=== PATIENT | male | born 1960 | race Caucasian/White ===

== ENCOUNTER 2019-05-29 14:45 | Inpatient (IN) | payer MEDICARE ==
[~2019-05-29] VITALS: Ht 172.7 cm; Wt 86.6 kg
[2019-05-29 14:57] VITALS: BP 103/60
[2019-05-29 15:38] LABS: HEMATOCRIT 46.1 % (42.0-52.0); HEMOGLOBIN 14.6 g/dl (14.0-18.0); MEAN CELL VOLUME 84.6 fl (80.0-94.0); MEAN CORPUSCULAR HGB 26.8 pg (27.0-31.0); MEAN CORPUSCULAR HGB CONC 31.7 g/dl (33.0-37.0); MEAN PLATELET VOLUME 10.1 fl (9.6-12.3); PLATELET COUNT AUTOMATED 284 10*3/uL (130-400); RED BLOOD COUNT 5.45 10*6/uL (4.50-5.90); WHITE BLOOD COUNT 18.8 10*3/uL (4.8-10.8)
[2019-05-29] MEDS ORDERED: CLONIDINE0.3 MG PO ×2 (15:45→15:49)
[2019-05-29] MEDS ORDERED: METFORMIN850 MG PO (15:45)
[2019-05-29] MEDS ORDERED: GLIMEPIRIDE4 M1 PO (15:46)
[2019-05-29] MEDS ORDERED: METOPROLOL TAR100 M1 PO (15:46)
[2019-05-29] MEDS ORDERED: ENALAPRIL MALEA20 MG PO (15:46)
[2019-05-29] MEDS ORDERED: AMLODIPINE BESY10 MG PO (15:47)
[2019-05-29] MEDS ORDERED: FARXIGA10 M1 PO (15:47)
[2019-05-29] MEDS ORDERED: TRADJENTA5 M1 PO (15:47)
[2019-05-29] MEDS ORDERED: LOVASTATIN10 MG PO (15:48)
[2019-05-29 15:56] LABS: ALBUMIN 3.5 gm/dl (3.1-4.5); ALKALINE PHOSPHATASE 95 U/L (45-117); BUN 24 mg/dl (7-24); CHLORIDE 106 mmol/L (98-107); CREATININE 1.53 mg/dL (0.70-1.30); POTASSIUM 3.9 mmol/L (3.5-5.1); SGOT/AST 45 IU/L (3-35); SGPT/ALT 43 U/L (12-78); SODIUM 143 mmol/L (136-145); TOTAL PROTEIN 8.1 gm/dL (6.4-8.2)
[2019-05-29 16:00] LABS: TROPONIN I < 0.015 ng/ml (<0.045)
[2019-05-29 16:03] LABS: PLATELET SUFFICIENCY NORMAL (NORMAL); TOTAL CELLS COUNTED 100 #CELLS
[2019-05-29 16:04] LABS: BURR CELLS FEW
--- NOTE | 2019-05-29 16:43 | NUR ---
THE PATIENTS SISTER IN LAW GAVE APPROVAL FOR THIS NURSE TO [facility] THE PATIENT. I TOLD LUKASZ TERRY AND SHE GAVE A VERBAL ORDER TO [facility] THE PATIENT.
[2019-05-29 16:44] LABS: BILIRUBIN NEGATIVE (NEGATIVE); BLOOD 3+ (NEGATIVE); CLARITY CLOUDY (CLEAR); COLOR YELLOW (YELLOW); GLUCOSE 3+ (NEGATIVE); KETONE 2+ (NEGATIVE); LEUKO ESTERASE NEGATIVE (NEGATIVE); NITRITE NEGATIVE (NEGATIVE); UROBILINOGEN 0.2 E.U./dl (0.2-1.0)
[2019-05-29 16:50] LABS: BACTERIA 1+; MUCOUS 1+; RBC TNTC rbc/hpf (0-2)
[2019-05-29 17:00] LABS: URINE AMPHETAMINES < 1000 (1000ng/ml); URINE BARBITURATES < 200 (200ng/ml); URINE BENZODIAZEPINES < 200 (200ng/ml); URINE CANNABINOIDS (THC) < 50 (50ng/ml); URINE COCAINE < 300 (300ng/ml); URINE METHADONE < 300 (300ng/ml); URINE OPIATES < 300 (300ng/ml)
[2019-05-29 17:03] LABS: URINE PHENCYCLIDINE < 25 (25ng/ml)
[2019-05-29 17:23] VITALS: BP 136/77
--- NOTE | 2019-05-29 17:30 | NUR ---
A 58, admitted to 4E, under the services of MATTIE Velazquez DO with a diagnosis of UTI. Chief complaint is CHANGE IN MENTAL STATUS . Patient arrived via stretcher from ER. Monitor applied. Initial assessment completed. Vital signs taken and recorded. MATTIE VELAZQUEZ DO notified of admission to the unit. Orders received. See assessment for past medical history, medications and allergies. Patient and/or family oriented to unit. [facility] visitation policy reviewed. Clothing/patient valuable form completed. MAXIMO LAURA
--- NOTE | 2019-05-29 17:42 | NUR ---
THE PATIENTS SISTER IN LAW KAMARI SIGNED CONSENT FOR ADMISSION
[2019-05-29 20:00] VITALS: BP 141/79
[2019-05-30] VITALS: BP 124/83
--- NOTE | 2019-05-30 00:38 | NUR ---
24 HR chart check completed.
[2019-05-30 06:23] LABS: BASO % 0.4 % (0.0-1.0); EOS % 0.5 % (1.0-4.0); HEMATOCRIT 41.5 % (42.0-52.0); HEMOGLOBIN 13.1 g/dl (14.0-18.0); LYMPH # 0.9 10*3/uL (1.3-4.4); MEAN CORPUSCULAR HGB 26.5 pg (27.0-31.0); MEAN CORPUSCULAR HGB CONC 31.6 g/dl (33.0-37.0); MEAN PLATELET VOLUME 10.1 fl (9.6-12.3); MONO # 0.8 10*3/uL (0.1-1.0); MONO % 9.3 % (3.0-9.0); NEUT # 6.8 10*3/uL (2.3-7.9); NEUT % 79.3 % (47.0-73.0); PLATELET COUNT AUTOMATED 232 10*3/uL (130-400); RED BLOOD COUNT 4.94 10*6/uL (4.50-5.90); RED CELL DISTRI WIDTH 16.9 % (0-14.5); WHITE BLOOD COUNT 8.5 10*3/uL (4.8-10.8)
[2019-05-30 06:28] LABS: BUN 19 mg/dl (7-24); CHLORIDE 110 mmol/L (98-107); CREATININE 1.24 mg/dL (0.70-1.30); POTASSIUM 3.4 mmol/L (3.5-5.1); SODIUM 139 mmol/L (136-145)
[2019-05-30 06:32] LABS: CHOLESTEROL 102 mg/dL (<200); HDL CHOLESTEROL 34 mg/dl (40-60); LDL CHOLESTEROL 46 mg/dL (9-159); PHOSPHOROUS 2.1 mg/dL (2.5-4.9); TRIGLYCERIDES 108 mg/dl (<150); VLDL CHOLESTEROL 22 mg/dL (6-40)
--- NOTE | 2019-05-30 06:59 | NUR ---
PRN TYLENOL GIVEN FOR A HEADACHE. WILL REASSESS EFFECTIVENESS.
[2019-05-30 08:00] VITALS: BP 134/77
--- NOTE | 2019-05-30 08:32 | NUR ---
PATIENT IS REFUSING TO WEAR THE HEAR MONITOR AT THIS TIME. PATIENT HAS NO DISTRESS OR CONCERNS NOTED.
--- NOTE | 2019-05-30 09:34 | NUR ---
PATIENT STILL REFUSING TO WEAR HEART MONITOR. PATIENT IS IN NO DISTRESS AT THIS TIME. 1 ON 1 STILL IN ROOM
[2019-05-30 12:00] VITALS: BP 115/74
[2019-05-30 16:00] VITALS: BP 142/75
[2019-05-30 20:00] VITALS: BP 122/72
[2019-05-31] VITALS: BP 114/80
--- NOTE | 2019-05-31 01:49 | NUR ---
CALLED AND NOTIFIED HIM THAT PT IS HAVING A LOT OF PAIN AND TYLENOL IS NOT HELPING. RECEIVED AN ORDER FOR A 1X DOSE OF NORCO. PER I CAN GIVE THIS MEDICATION 1 HR AFTER PT RECEIVED THE TYLENOL.
--- NOTE | 2019-05-31 02:33 | NUR ---
24 HR chart check completed.
[2019-05-31 06:37] LABS: BUN 12 mg/dl (7-24); CHLORIDE 107 mmol/L (98-107); CREATININE 0.99 mg/dL (0.70-1.30); POTASSIUM 3.4 mmol/L (3.5-5.1); SODIUM 140 mmol/L (136-145)
[2019-05-31 06:42] LABS: BASO % 1.2 % (0.0-1.0); EOS # 0.1 10*3/uL (0.0-0.4); EOS % 2.3 % (1.0-4.0); HEMATOCRIT 45.1 % (42.0-52.0); HEMOGLOBIN 14.4 g/dl (14.0-18.0); LYMPH # 0.9 10*3/uL (1.3-4.4); LYMPH % 25.1 % (27.0-41.0); MEAN CELL VOLUME 83.2 fl (80.0-94.0); MEAN CORPUSCULAR HGB 26.6 pg (27.0-31.0); MEAN CORPUSCULAR HGB CONC 31.9 g/dl (33.0-37.0); MEAN PLATELET VOLUME 10.5 fl (9.6-12.3); MONO # 0.6 10*3/uL (0.1-1.0); MONO % 17.6 % (3.0-9.0); NEUT # 1.8 10*3/uL (2.3-7.9); NEUT % 52.9 % (47.0-73.0); PLATELET COUNT AUTOMATED 251 10*3/uL (130-400); RED BLOOD COUNT 5.42 10*6/uL (4.50-5.90); RED CELL DISTRI WIDTH 16.7 % (0-14.5); WHITE BLOOD COUNT 3.5 10*3/uL (4.8-10.8)
[2019-05-31 08:00] VITALS: BP 97/80
--- NOTE | 2019-05-31 09:03 | NUR ---
Mat Machine Operator in to talk to patient. Patient states lives at home with brother and sister in law. There are no steps in the home. Physician: [facility]acy: [facility] Home health services: none Patient's level of ADLs: INDEPENDENT Patient has working utilities: all working DME: none Follow-up physician's appointment after d/c: will be made by hospitalist nurse director upon discharge Does patient want to access PORTAL?: no Discharge plan discussed with patient's brother and sister in law, brother Peter states patient lives with him and his , he is independent in ambulation and needs minimal assistance with adls, he attends the [employer], brother stated patient would return home with him and at this time denies any home needs, case management will follow. KRISTIN BERGERON
[2019-05-31 12:00] VITALS: BP 145/96
--- NOTE | 2019-05-31 12:18 | NUR ---
Patient is sexually inappropriate with self and attempted to urinate on staff. Per staff patient would not follow directions and stop behaviour.
--- NOTE | 2019-05-31 13:03 | NUR ---
As reported from another patient assistannt, she does not think he is being sexually inappropriate. She beleives it's painful during urination.
--- NOTE | 2019-05-31 14:18 | NUR ---
MEDICATED WITH TYLENOL FOR PENILE/SCROTUM PAIN. WILL MONITOR. CALL LIGHT WITHIN REACH. 1:1 MAINTAINED.
[2019-05-31 16:00] VITALS: BP 121/67
--- NOTE | 2019-05-31 17:15 | NUR ---
NOTIFIED OF LARGE PIECE OR FOAM REMOVED FROM PATIENTS RIGHT EAR WITHOUT DIFFICULTY
[2019-05-31 20:00] VITALS: BP 134/91
[2019-06-01] VITALS: BP 128/98
[2019-06-01 06:19] LABS: HEMATOCRIT 44.1 % (42.0-52.0); HEMOGLOBIN 14.2 g/dl (14.0-18.0); MEAN CELL VOLUME 80.9 fl (80.0-94.0); MEAN CORPUSCULAR HGB 26.1 pg (27.0-31.0); MEAN CORPUSCULAR HGB CONC 32.2 g/dl (33.0-37.0); MEAN PLATELET VOLUME 9.6 fl (9.6-12.3); PLATELET COUNT AUTOMATED 257 10*3/uL (130-400); RED BLOOD COUNT 5.45 10*6/uL (4.50-5.90); RED CELL DISTRI WIDTH 16.1 % (0-14.5); WHITE BLOOD COUNT 4.8 10*3/uL (4.8-10.8)
[2019-06-01 06:33] LABS: BUN 13 mg/dl (7-24); CHLORIDE 107 mmol/L (98-107); CREATININE 0.81 mg/dL (0.70-1.30); POTASSIUM 3.6 mmol/L (3.5-5.1); SODIUM 139 mmol/L (136-145)
[2019-06-01 07:26] LABS: BASOPHILS 1 % (0-1); PLATELET SUFFICIENCY NORMAL (NORMAL); TOTAL CELLS COUNTED 100 #CELLS
[2019-06-01 08:00] VITALS: BP 129/100
[2019-06-01] MEDS ORDERED: CIPRO500 MG PO (11:46)
--- NOTE | 2019-06-01 12:40 | NUR ---
Discharge instructions reviewed with patient/family. Patient receptive and verbalizes understanding. Follow-up care arranged. Written instructions given to patient/family. RAVINDER CASTANEDA
--- NOTE | 2019-06-01 12:43 | NUR ---
PT DISCHARGED AT THIS TIME WITH SISTER IN LAW KAMARI TO HOME.
== END 2019-06-01 12:43 | disposition home or self-care (01) | DRG 871 ==
LOC: ED 14:45 → EDHOLD 17:02 → 4E 17:02
PROVIDERS: Internal Medicine; Physician Assistant; Student in an Organized Health Care Education/Training Program; ADMIT Emergency Medicine
DX: A41.9 Sepsis, unspecified organism (principal); N17.0 Acute kidney failure with tubular necrosis; N30.01 Acute cystitis with hematuria; E87.2 Acidosis; R65.20 Severe sepsis without septic shock; D64.9 Anemia, unspecified; E83.39 Other disorders of phosphorus metabolism; E11.65 Type 2 diabetes mellitus with hyperglycemia; E87.8 Other disorders of electrolyte and fluid balance, not elsewhere classified; E87.6 Hypokalemia; I10 Essential (primary) hypertension; R62.50 Unspecified lack of expected normal physiological development in childhood; Z91.040 Latex allergy status; Z79.899 Other long term (current) drug therapy

== ENCOUNTER 2021-04-25 12:58 | Inpatient (IN) | payer MEDICARE ==
[~2021-04-25] VITALS: Ht 172.7 cm; Wt 105.4 kg
[~2021-04-25 12:58] MED LIST: AMLODIPINE BESY10 MG PO; CIPRO500 MG PO; CLONIDINE0.3 MG PO; ENALAPRIL MALEA20 MG PO; FARXIGA10 M1 PO; GLIMEPIRIDE4 M1 PO; LOVASTATIN10 MG PO; METFORMIN850 MG PO; METOPROLOL TAR100 M1 PO; TRADJENTA5 M1 PO
[2021-04-25 13:20] VITALS: BP 95/42
[2021-04-25 14:17] LABS: BASO % 0.2 % (0.0-1.0); EOS % 0.4 % (1.0-4.0); HEMATOCRIT 41.8 % (42.0-52.0); LYMPH # 0.8 10*3/uL (1.3-4.4); LYMPH % 13.3 % (27.0-41.0); MEAN CELL VOLUME 82.4 fl (80.0-94.0); MEAN CORPUSCULAR HGB 26.4 pg (27.0-31.0); MEAN CORPUSCULAR HGB CONC 32.1 g/dl (33.0-37.0); MONO # 0.4 10*3/uL (0.1-1.0); MONO % 7.1 % (3.0-9.0); NEUT # 4.4 10*3/uL (2.3-7.9); NEUT % 78.3 % (47.0-73.0); PLATELET COUNT AUTOMATED 258 10*3/uL (130-400); RED BLOOD COUNT 5.07 10*6/uL (4.50-5.90); RED CELL DISTRI WIDTH 14.6 % (0-14.5); WHITE BLOOD COUNT 5.7 10*3/uL (4.8-10.8)
[2021-04-25 14:33] LABS: ALBUMIN 2.8 gm/dl (3.1-4.5); ALKALINE PHOSPHATASE 81 U/L (45-117); BUN 22 mg/dl (7-24); CHLORIDE 112 mmol/L (98-107); CREATININE 1.16 mg/dL (0.70-1.30); LIPASE 161 U/L (73-393); POTASSIUM 3.4 mmol/L (3.5-5.1); SGOT/AST 51 IU/L (3-35); SGPT/ALT 52 U/L (12-78); SODIUM 143 mmol/L (136-145); TOTAL PROTEIN 7.8 gm/dL (6.4-8.2)
[2021-04-25 17:35] VITALS: BP 137/66
[2021-04-25 17:50] VITALS: BP 147/60
[2021-04-25 20:00] VITALS: BP 140/84
[2021-04-26] VITALS: BP 147/67
[2021-04-26 05:40] LABS: ALBUMIN 2.6 gm/dl (3.1-4.5); ALKALINE PHOSPHATASE 72 U/L (45-117); BUN 17 mg/dl (7-24); CHLORIDE 115 mmol/L (98-107); CHOLESTEROL 94 mg/dL (<200); CREATININE 0.97 mg/dL (0.70-1.30); LDL CHOLESTEROL 36 mg/dL (9-159); POTASSIUM 3.3 mmol/L (3.5-5.1); SGOT/AST 55 IU/L (3-35); SGPT/ALT 51 U/L (12-78); SODIUM 144 mmol/L (136-145); TRIGLYCERIDES 110 mg/dl (<150)
[2021-04-26 05:46] LABS: FREE T4 1.73 ng/dl (0.76-1.46)
[2021-04-26 06:19] LABS: BASO % 0.5 % (0.0-1.0); EOS % 0.7 % (1.0-4.0); HEMATOCRIT 40.4 % (42.0-52.0); LYMPH # 0.9 10*3/uL (1.3-4.4); LYMPH % 21.3 % (27.0-41.0); MEAN CELL VOLUME 83.8 fl (80.0-94.0); MEAN CORPUSCULAR HGB 26.6 pg (27.0-31.0); MEAN CORPUSCULAR HGB CONC 31.7 g/dl (33.0-37.0); MEAN PLATELET VOLUME 9.7 fl (9.6-12.3); MONO # 0.4 10*3/uL (0.1-1.0); MONO % 9.7 % (3.0-9.0); NEUT # 2.9 10*3/uL (2.3-7.9); NEUT % 67.3 % (47.0-73.0); PLATELET COUNT AUTOMATED 256 10*3/uL (130-400); RED BLOOD COUNT 4.82 10*6/uL (4.50-5.90); RED CELL DISTRI WIDTH 14.5 % (0-14.5); WHITE BLOOD COUNT 4.3 10*3/uL (4.8-10.8)
[2021-04-26 08:00] VITALS: BP 136/74
[2021-04-26 08:37] LABS: FERRITIN 242.1 ng/mL (22.0-322.0)
[2021-04-26 12:00] VITALS: BP 120/58
[2021-04-26 16:00] VITALS: BP 107/77
[2021-04-26 20:00] VITALS: BP 118/80
[2021-04-27] VITALS: BP 147/88
[2021-04-27 06:10] LABS: LYMPH # 0.8 10*3/uL (1.3-4.4); LYMPH % 17.9 % (27.0-41.0); MEAN CELL VOLUME 82.2 fl (80.0-94.0); MEAN CORPUSCULAR HGB CONC 31.7 g/dl (33.0-37.0); MEAN PLATELET VOLUME 10.2 fl (9.6-12.3); MONO # 0.5 10*3/uL (0.1-1.0); MONO % 11.2 % (3.0-9.0); NEUT # 2.9 10*3/uL (2.3-7.9); NEUT % 69.9 % (47.0-73.0); PLATELET COUNT AUTOMATED 315 10*3/uL (130-400); RED BLOOD COUNT 5.11 10*6/uL (4.50-5.90); RED CELL DISTRI WIDTH 14.2 % (0-14.5); WHITE BLOOD COUNT 4.2 10*3/uL (4.8-10.8)
[2021-04-27 06:11] LABS: ALBUMIN 2.7 gm/dl (3.1-4.5); BUN 22 mg/dl (7-24); CHLORIDE 113 mmol/L (98-107); POTASSIUM 3.4 mmol/L (3.5-5.1); SGOT/AST 79 IU/L (3-35); SGPT/ALT 92 U/L (12-78); SODIUM 143 mmol/L (136-145)
[2021-04-27 06:14] LABS: ALKALINE PHOSPHATASE 75 U/L (45-117); TOTAL PROTEIN 7.7 gm/dL (6.4-8.2)
[2021-04-27 08:00] VITALS: BP 149/97
[2021-04-27 12:00] VITALS: BP 162/80
[2021-04-27 16:00] VITALS: BP 167/80
[2021-04-27 20:00] VITALS: BP 134/88
[2021-04-28] VITALS: BP 120/82
[2021-04-28 05:57] LABS: BUN 21 mg/dl (7-24); CHLORIDE 112 mmol/L (98-107); POTASSIUM 3.9 mmol/L (3.5-5.1); SODIUM 142 mmol/L (136-145)
[2021-04-28 06:04] LABS: ALBUMIN 2.6 gm/dl (3.1-4.5); ALKALINE PHOSPHATASE 67 U/L (45-117); SGOT/AST 51 IU/L (3-35); SGPT/ALT 93 U/L (12-78); TOTAL PROTEIN 6.9 gm/dL (6.4-8.2)
[2021-04-28 06:23] LABS: BASO % 0.2 % (0.0-1.0); HEMATOCRIT 40.4 % (42.0-52.0); LYMPH # 0.9 10*3/uL (1.3-4.4); LYMPH % 17.3 % (27.0-41.0); MEAN CELL VOLUME 82.4 fl (80.0-94.0); MEAN CORPUSCULAR HGB 26.5 pg (27.0-31.0); MEAN CORPUSCULAR HGB CONC 32.2 g/dl (33.0-37.0); MEAN PLATELET VOLUME 9.9 fl (9.6-12.3); MONO # 0.6 10*3/uL (0.1-1.0); MONO % 11.1 % (3.0-9.0); NEUT # 3.6 10*3/uL (2.3-7.9); NEUT % 70.4 % (47.0-73.0); PLATELET COUNT AUTOMATED 325 10*3/uL (130-400); RED CELL DISTRI WIDTH 14.1 % (0-14.5); WHITE BLOOD COUNT 5.1 10*3/uL (4.8-10.8)
[2021-04-28 08:00] VITALS: BP 156/87
[2021-04-28 12:00] VITALS: BP 128/85
[2021-04-28] MEDS ORDERED: VITAMIN D350 MC2 PO (12:09)
[2021-04-28] MEDS ORDERED: ZITHROMAX250 MG PO (12:10)
[2021-04-28] MEDS ORDERED: DECADRON6 M1 PO (12:10)
[2021-04-28 16:00] VITALS: BP 112/78
== END 2021-04-28 16:42 | disposition home or self-care (01) | DRG 871 ==
LOC: ED 12:58 → EDHOLD 15:13 → 4E 15:13
PROVIDERS: Physician Assistant; Registered Nurse; ADMIT Family Medicine; ATTEND Family Medicine
PROC: XW033E5 Introduction of Remdesivir Anti-infective into Peripheral Vein, Percutaneous Approach, New Technology Group 5 (ICD-10-PCS; principal; 2021-04-26)
DX: A41.89 Other specified sepsis (principal); U07.1 COVID-19; J12.82 Pneumonia due to coronavirus disease 2019; E43 Unspecified severe protein-calorie malnutrition; J96.01 Acute respiratory failure with hypoxia; E11.65 Type 2 diabetes mellitus with hyperglycemia; I10 Essential (primary) hypertension; E78.5 Hyperlipidemia, unspecified; Z79.899 Other long term (current) drug therapy